=== PATIENT | male | born 1960 | race Caucasian/White ===

== ENCOUNTER 2020-12-03 10:21 | Outpatient (REF) | payer SELFPAY | END 2020-12-03 10:22 | disposition home or self-care (01) | LOC: HO.HAP 10:21 | PROVIDERS: Visit Provider Internal Medicine | DX: Z46.1 Encounter for fitting and adjustment of hearing aid (principal) | CPT/HCPCS: V5267 ==

== ENCOUNTER 2021-01-01 11:20 | Outpatient (REF) | payer BC, SELFPAY ==
--- NOTE | 2021-01-02 11:28 | MHC.AU.P13 ---
Adult Audiological Evaluation Date of Visit: 01/01/21 Prepress Proofer Used: Not Applicable Reason for Appointment: Audiologic re-evaluation due to question of change in hearing ability. Previous Hearing Test Results: 03/18/2018 [facility] Normal hearing thresholds 250-1500 Hz, dropping to a moderately-severe sensorineural hearing loss at 4000 Hz, rising to a moderate loss at 8000 Hz, bilaterally Ear History: Bothersome Tinnitus/Ringing/Noises in Ears: Both Ears History of occupational noise exposure?: Yes Medical History: Medical History: High Blood Pressure Medical History: Asthma Medication List: Q-zulma Inhaler, Zafirlukast, Losartan Hearing Instrument History- Right Ear: Blanket Maker: [employer] Model: Boundless V 70-P Serial Number: [id number] Battery Size: 13 Repair Warranty: 10/27/2019 Dispensed By: [facility] Date of Fittin08/12/2016 Hearing Instrument History- Left Ear: Blanket Maker: [employer] Model: Boundless V 70-P Serial Number: [id number] Battery Size: 13 Warranty: 10/27/2019 Dispensed By: [facility] Date of Fittin08/12/2016 Otoscopy: Right Ear: Unremarkable Left Ear: Unremarkable Tympanometry: Right Ear: Not performed at today's visit Left Ear: Not performed at today's visit Hearing Evaluation: Transducer(s) Used: Insert Earphones Method: Conventional Audiometry Stimuli Used: Pure Tones Right Ear: Description of Hearing: Normal hearing thresholds 250-1500 Hz, dropping to a moderately-severe sensorineural hearing loss at 4000 Hz, rising to a moderate loss at 8000 Hz Left Ear: Description of Hearing: Normal hearing thresholds 250-1500 Hz, dropping to a moderately-severe sensorineural hearing loss at 4000 Hz, rising to a moderate loss at 8000 Hz Speech Recognition Threshold (SRT): Method Used: Monitored Live Voice Stimuli Used: Spondee Words Right Ear: 15 dB HL Left Ear: 20 dB HL Word Discrimination: Method: Recorded Lists Word Lists Used: NU-6 Right Ear: 100% at 60 dB HL Left Ear: 96% at 60 dB HL QuickSIN: Unaided Binaural Quick SIN Test: 3 dB SNR Loss suggesting Bennie experiences a mild degree of difficulty understanding speech with increasing levels of background noise. Comparison: Compared to the most recent evaluation: Hearing is stable. Recommendations: Audiological re-evaluation in one year. Hearing aids were cleaned, and slim tubes and domes changed. Both aids amplifying well. The volume controls of both hearing aids are not functioning easily. If Bennie would like this fixed, the hearing aids will need to be sent to [employer] for repair. Diagnosis: Primary Diagnosis: H90.3 Bilateral Sensorineural Hearing Loss Secondary Diagnosis: H93.13 Tinnitus, Bilateral Services Performed: Comprehensive Audiological Evaluation (CPT 58779) Signature: Provider: Julisa Muñoz, CCC-A
== END 2021-01-01 11:21 | disposition home or self-care (01) ==
LOC: HO.SH 11:20
PROVIDERS: Visit Provider Internal Medicine
DX: Z46.1 Encounter for fitting and adjustment of hearing aid (principal); H90.3 Sensorineural hearing loss, bilateral
CPT/HCPCS: 92557; V5266

== ENCOUNTER 2021-01-01 12:20 | Outpatient (REF) | payer SELFPAY | END 2021-01-01 12:21 | disposition home or self-care (01) | LOC: HO.HAP 12:20 | PROVIDERS: Visit Provider Internal Medicine | DX: H90.3 Sensorineural hearing loss, bilateral (principal) | CPT/HCPCS: 92557; V5266 ==

== ENCOUNTER 2021-05-12 14:48 | Outpatient (REF) | payer SELFPAY | END 2021-05-12 14:49 | disposition home or self-care (01) | LOC: HO.HAP 14:48 | PROVIDERS: Visit Provider Internal Medicine | DX: Z13.89 Encounter for screening for other disorder (principal) ==

== ENCOUNTER 2021-07-02 10:22 | Outpatient (REF) | payer SELFPAY ==
--- NOTE | 2021-07-02 12:17 | MHC.AU.HAS ---
Hearing Aid Evaluation Date of Visit: 07/02/21 Historical Information: Description of Hearing: Normal hearing 250-1000 Hz dropping to moderately-severe high frequency sensorineural hearing loss bilaterally Current personal amplification information, if applicable: Binaural Phonak Bolero V70-P BTE Summary: Patient reports both hearing aids stopped working recently and is back to using old hearing aids. Wants to purchase new hearing aids. Patient wanted to stay with Phonak slim tube BTE with battery style; however, the newest platform for Phonak does not have this style. Advised patient to try Audeo P 70 13T for newest technology. Hearing Aid Prescription: Based on the individual?s shared listening needs, communication environments, dexterity, desire for connectivity, and personal preferences, the following prescription for amplification has been made: Right ear: Mesh Man: Phonak Model: Audeo P 70-13T Battery Size: 13 Color: Sand Beige Bond Trader: #3 M Type of Dome: Large Open Left ear: Mesh Man: Phonak Model: Audeo P 70-13T Battery Size: 13 Color: Sand Beige Bond Trader: #3 M Type of Dome: Large Open Plan of Care: Patient wishes to purchase hearing aids as prescribed Action Taken/Action Needed: Medical Clearance to be requested from PCP/ENT Comments: Performed Pure Tone Check as last audiogram was performed 01/01/2021. Will need Itemized Bill and copy of medical clearance for insurance reimbursement Primary Diagnosis: H90.3 Bilateral Sensorineural Hearing Loss Signature: Provider: Julisa Muñoz, CORY-A
--- NOTE | 2021-07-02 12:19 | MHC.AU.MED ---
Medical Clearance for Hearing Instrumentation Date: 07/02/21 Patient Name: Bennie Damon Date of : 1960 Primary Care Provider: Referring Provider: Jimmy Preez MD We have seen your patient on 07/02/21 and have determined that they are a candidate for amplification (See accompanying report). Specifically, they would benefit from: Hearing aid use in both ears There is a statute that addresses Medical Evaluation Requirements prior to fitting a patient with a hearing aid. According to [place] statute 265 CMR:6.03(1), (a) General. Except as provided in 265 CMR 6.03(1)(b), a workers' compensation hearings officer shall not sell a hearing aid unless the prospective user has presented to the workers' compensation hearings officer a written statement signed by a licensed physician that states that the patient's hearing loss has been medically evaluated and the patient may be considered a candidate for a hearing aid. The medical evaluation must have taken place within the preceding six months. Please note: Due to the [place] Statute referenced above, we cannot accept a signature other than that of a licensed physician. TELEPHONE SURVEYOR and PA signatures cannot be accepted. I am in agreement with the above recommendation. There is no medical contraindication for hearing instrumentation. Physician Signature Date Physician Name (Printed)
== END 2021-07-02 10:23 | disposition home or self-care (01) ==
LOC: HO.HAP 10:22
PROVIDERS: Visit Provider Internal Medicine
DX: Z13.89 Encounter for screening for other disorder (principal)

== ENCOUNTER 2021-07-14 12:23 | Outpatient (REF) | payer SELFPAY | END 2021-07-14 12:24 | disposition home or self-care (01) | LOC: HO.HAP 12:23 | PROVIDERS: Visit Provider Internal Medicine | DX: Z46.1 Encounter for fitting and adjustment of hearing aid (principal); H90.3 Sensorineural hearing loss, bilateral | CPT/HCPCS: 92591; V5261 ==

== ENCOUNTER 2021-07-28 09:51 | Outpatient (REF) | payer SELFPAY | END 2021-07-28 09:52 | disposition home or self-care (01) | LOC: HO.HAP 09:51 | PROVIDERS: Visit Provider Internal Medicine | DX: Z13.89 Encounter for screening for other disorder (principal) ==

== ENCOUNTER 2024-06-23 11:26 | Outpatient (REF) | payer SELFPAY ==
--- NOTE | 2024-06-23 12:54 | MHC.AU.HA3 ---
Hearing Instrument Follow-Up- Binaural Date of Visit: 06/23/24 Right Ear: Wayne, Model, Color, Serial Number: Declan Covington P70-13T SN: [id number] Color: Sand Biege Head Rigger Repair Warranty: 09/29/2024 Head Rigger Loss and Damage Warranty: 09/29/2024 Battery Size: 13 Showroom Executive Director/Slim Tube: 3M Earmold/Dome/CShell/SlimTip:Large open dome with retention tail Type of Wax Guard: CeruShield Dispensed By: [facility] Date of Fittin07/14/2021 Left Ear: Wayne, Model, Color, Serial Number: Declan Covington P70-13T SN: [id number] Color: Sand Biege Head Rigger Repair Warranty: 09/29/2024 Head Rigger Loss and Damage Warranty: 09/29/2024 Battery Size: 13 Showroom Executive Director/Slim Tube: 3M Earmold/Dome/CShell/SlimTip: Large open dome with retention tail Type of Wax Guard: CeruShield Dispensed By: [facility] Date of Fittin07/14/2021 Follow-Up Summary: Routine clean and check with reported issue that hearing aids get louder in tinnitus masking program. Previously an intermittent issue, now constant. Cleaned both hearing aids. Replaced receivers (starting to get discolored, still under warranty), domes, and retention tails. Vacuumed microphones. Ran through dehumidifier. Decreased overall gain in tinnitus program and increased tinnitus masking noise slightly at Bennie's request. Noted improvement in office. Inquired about updated hearing test - he will request order from PCP. Recommendations: Hearing instrument follow-up or maintenance as needed. Please contact our clinic with any questions or concerns. Diagnosis Code(s): Primary Diagnosis: H90.3 Bilateral Sensorineural Hearing Loss Signature: Provider: Vicky Killian, [facility]
== END 2024-06-23 11:27 | disposition home or self-care (01) ==
LOC: HO.HAP 11:26
PROVIDERS: Visit Provider Internal Medicine
DX: Z13.89 Encounter for screening for other disorder (principal)

== ENCOUNTER 2024-07-12 13:01 | Outpatient (REF) | payer BC, SELFPAY | END 2024-07-12 13:02 | disposition home or self-care (01) | LOC: HO.SH 13:01 | PROVIDERS: Visit Provider Internal Medicine | DX: Z01.118 Encounter for examination of ears and hearing with other abnormal findings (principal); H90.3 Sensorineural hearing loss, bilateral | CPT/HCPCS: 92557 ==

== ENCOUNTER 2024-07-21 10:27 | Outpatient (REF) | payer SELFPAY | END 2024-07-21 10:28 | disposition home or self-care (01) | LOC: HO.HAP 10:27 | PROVIDERS: Visit Provider Internal Medicine | DX: Z13.89 Encounter for screening for other disorder (principal) ==